=== PATIENT | female | born 1955 | race Hispanic/Latino ===

== ENCOUNTER 2019-01-13 10:32 | Emergency (ER) | payer MEDICAID ==
[~2019-01-13 10:32] MED LIST: BUSP7.5T7 PO; CANA300T PO; CARV25TA PO; HYDR-4068 PO; LINA5TAB PO; METF-446 PO; PIOG30TA70 PO; SAXA5TAB PO
== END 2019-01-13 12:42 | disposition home or self-care (01) ==
LOC: EDH 10:32
DX: L08.9 Local infection of the skin and subcutaneous tissue, unspecified (principal); M79.89 Other specified soft tissue disorders; M79.675 Pain in left toe(s); I10 Essential (primary) hypertension; F41.9 Anxiety disorder, unspecified; E11.9 Type 2 diabetes mellitus without complications
CPT/HCPCS: 73660

== ENCOUNTER 2019-01-19 12:46 | Emergency (ER) | payer MEDICAID ==
[~2019-01-19 12:46] MED LIST changes: -LIDOCAINE/PRILOCAINE CREAM 5GM TUBE TP ONE
[2019-01-19] MEDS ORDERED: NITROGLYCERIN 1GM/1 INCH PACKET TD ONE (13:30)
[2019-01-19 13:59] LABS: CREATININE 0.7 mg/dL (0.5-1.5); POTASSIUM 3.7 mmol/L (3.5-5.1)
[2019-01-19 14:03] LABS: APPEARANCE,URINE Clear (CLEAR); BILIRUBIN,URINE Negative (NEGATIVE); COLOR,URINE Yellow (YELLOW); GLUCOSE, URINE (UA) >=1000 mg/dL (NEGATIVE); KETONES,URINE Negative (NEGATIVE); LEUKOCYTE ESTERASE ,URINE Small (NEGATIVE); NITRATE,URINE Negative (NEGATIVE); OCCULT BLOOD,URINE Negative (NEGATIVE); PH,URINE 6.5 (5.0-8.0); PROTEIN,URINE Negative (NEGATIVE)
[2019-01-19 14:11] LABS: BACTERIA,URINE Rare /HPF (None Seen); RBC,URINE 0-1 /HPF (0-1); SQUAMOUS EPITHELIAL CELL,UR Moderate /HPF (0-2)
== END 2019-01-19 15:04 | disposition home or self-care (01) ==
LOC: EDH 12:46
DX: I10 Essential (primary) hypertension (principal); L08.9 Local infection of the skin and subcutaneous tissue, unspecified; F41.9 Anxiety disorder, unspecified; E11.9 Type 2 diabetes mellitus without complications
CPT/HCPCS: 36415; 80048; 81001; 93005

== ENCOUNTER → 2019-01-19 | Outpatient (CLI) | payer MEDICAID ==
[~2019-01-19] MED LIST changes: +LIDOCAINE/PRILOCAINE CREAM 5GM TUBE TP ONE
[2019-01-19 15:52] VITALS: BP 258/110
== END | disposition home or self-care (01) ==
LOC: WHH 09:45
PROVIDERS: ATTEND Surgery
DX: E11.621 Type 2 diabetes mellitus with foot ulcer (principal); I70.248 Atherosclerosis of native arteries of left leg with ulceration of other part of lower leg; L97.521 Non-pressure chronic ulcer of other part of left foot limited to breakdown of skin; I10 Essential (primary) hypertension; I87.8 Other specified disorders of veins; F41.9 Anxiety disorder, unspecified; Z86.73 Personal history of transient ischemic attack (TIA), and cerebral infarction without residual deficits
CPT/HCPCS: 99215; J3490; L3260

== ENCOUNTER → 2019-08-23 | Outpatient (CLI) | payer MEDICAID | END | disposition home or self-care (01) | LOC: RAH 13:50 | PROVIDERS: ATTEND Family Medicine | DX: M47.812 Spondylosis without myelopathy or radiculopathy, cervical region (principal); M48.02 Spinal stenosis, cervical region | CPT/HCPCS: 72040 ==

== ENCOUNTER → 2020-11-08 | Outpatient (CLI) | payer MEDICAID | END | disposition home or self-care (01) | LOC: RAH 10:58 | PROVIDERS: ATTEND Family Medicine | DX: I70.293 Other atherosclerosis of native arteries of extremities, bilateral legs (principal) | CPT/HCPCS: 93930 ==